=== PATIENT | male | born 1955 | race Caucasian/White ===

== ENCOUNTER 2016-08-21 22:20 | Emergency (ER) | payer OTHER, MEDICAID ==
[~2016-08-21] VITALS: Ht 172.7 cm; Wt 91.0 kg
[2016-08-22] MEDS ORDERED: HYDROCODONE/ACETAMINOPHEN 10/325MG TABLET PO ONE (01:45)
[2016-08-22 04:20] VITALS: BP 124/69
== END 2016-08-22 05:40 | disposition home or self-care (01) ==
LOC: ER 22:20
DX: S09.90XA Unspecified injury of head, initial encounter (principal); S16.1XXA Strain of muscle, fascia and tendon at neck level, initial encounter; S06.0X9A Concussion with loss of consciousness of unspecified duration, initial encounter; X58.XXXA Exposure to other specified factors, initial encounter; Y93.89 Activity, other specified; Y92.89 Other specified places as the place of occurrence of the external cause; Y99.8 Other external cause status
CPT/HCPCS: 70450; 72125; 99284

== ENCOUNTER 2018-08-09 21:34 | Emergency (ER) | payer MEDICARE, MEDICAID ==
[~2018-08-09] VITALS: Ht 170.2 cm; Wt 89.0 kg
[~2018-08-09 21:34] MED LIST: IBUP-2077 PO
[2018-08-09] MEDS ORDERED: ALBUTEROL (0.083%) 2.5MG/3ML NEB HHN STA (22:57)
[2018-08-09 23:50] LABS: BASOPHILS % 0.7 % (0.0-2.0); EOSINOPHILS % 2.7 % (0.0-5.0); HEMATOCRIT. 37.1 % (42.0-52.0); HEMOGLOBIN. 13.2 g/dL (14.0-18.0); LYMPHOCYTES % 22.6 % (20.0-50.0); MEAN CORPUSCULAR HEMOGLOBIN 31.5 pg (28.0-32.0); MEAN CORPUSCULAR VOLUME 88.5 fL (80.0-94.0); MEAN PLATELET VOLUME 8.9 fl (7.4-10.4); MONOCYTES % 8.1 % (2.0-8.0); NEUTROPHILS % 65.9 % (40.0-76.0); PLATELET 162 x1000/uL (130-400)
[2018-08-09 23:56] LABS: CHLORIDE 111 mEq/L (98-107)
[2018-08-10 02:17] VITALS: BP 109/66
== END 2018-08-10 02:42 | disposition home or self-care (01) ==
LOC: ER 23:27
DX: J40 Bronchitis, not specified as acute or chronic (principal)
CPT/HCPCS: 36415; 71045; 80053; 83605; 85025; 87040; 93005; 94640; 99284; J7611

== ENCOUNTER 2018-12-13 21:09 | Emergency (ER) | payer MEDICARE, MEDICAID ==
[~2018-12-13] VITALS: Ht 172.7 cm; Wt 94.0 kg
[2018-12-13] MEDS ORDERED: DIAZEPAM 5 MG TABLET PO ONE (22:45)
[2018-12-13] MEDS ORDERED: KETOROLAC 60MG/2ML VIAL IM ONE (23:00)
[2018-12-13 23:52] VITALS: BP 143/75
== END 2018-12-14 00:38 | disposition home or self-care (01) ==
LOC: ER 21:09
DX: M62.838 Other muscle spasm (principal); R51 Headache
CPT/HCPCS: 96372; 99283; J1885

== ENCOUNTER 2021-05-14 18:40 | Emergency (ER) | payer OTHER, MEDICAID ==
[~2021-05-14] VITALS: Ht 170.2 cm; Wt 85.0 kg
[2021-05-14] MEDS ORDERED: ACETAMINOPHEN 325MG TABLET PO STA (19:57)
[2021-05-14] MEDS ORDERED: CYCLOBENZAPRINE 10MG TABLET PO ONE (20:00)
[2021-05-14] MEDS ORDERED: IBUP-2029 MT (23:45)
[2021-05-14 23:57] VITALS: BP 145/83
== END 2021-05-14 23:59 | disposition home or self-care (01) ==
LOC: ER 18:40
DX: S82.002A Unspecified fracture of left patella, initial encounter for closed fracture (principal); E11.9 Type 2 diabetes mellitus without complications; V43.52XA Car driver injured in collision with other type car in traffic accident, initial encounter; Y93.89 Activity, other specified; Y92.488 Other paved roadways as the place of occurrence of the external cause
CPT/HCPCS: 29505; 71045; 71100; 73030; 73562; 93005; 99285

== ENCOUNTER 2021-12-07 18:10 | Emergency (ER) | payer OTHER, MEDICAID ==
[~2021-12-07] VITALS: Ht 172.7 cm; Wt 92.3 kg
[~2021-12-07 18:10] MED LIST changes: +IBUP-2029 MT
[2021-12-07 21:06] LABS: EOSINOPHILS % 1.3 % (0.0-5.0); HEMATOCRIT. 42.9 % (42.0-52.0); LYMPHOCYTES % 37.2 % (20.0-50.0); MEAN CORPUSCULAR HEMOGLOBIN 30.6 pg (28.0-32.0); MEAN CORPUSCULAR VOLUME 87.3 fL (80.0-94.0); MEAN PLATELET VOLUME 10.2 fl (7.4-10.4); MONOCYTES % 7.8 % (2.0-8.0); NEUTROPHILS % 52.7 % (40.0-76.0); PLATELET 197 x1000/uL (130-400); RED BLOOD CELL COUNT 4.91 mill/uL (4.7-6.1); RED CELL DISTRIBUTION WIDTH 13.3 % (11.6-14.6)
[2021-12-07 21:20] LABS: CHLORIDE 104 mEq/L (98-107)
[2021-12-08 00:58] VITALS: BP 146/81
== END 2021-12-08 02:11 | disposition home or self-care (01) ==
LOC: ER 18:27
DX: R07.89 Other chest pain (principal); M79.602 Pain in left arm; R20.2 Paresthesia of skin; R94.31 Abnormal electrocardiogram [ECG] [EKG]; I10 Essential (primary) hypertension; E11.9 Type 2 diabetes mellitus without complications
CPT/HCPCS: 36415; 71045; 80053; 84484; 85025; 93005; 99285

== ENCOUNTER 2024-10-17 06:38 | Emergency (ER) | payer OTHER, MEDICAID ==
[~2024-10-17] VITALS: Ht 175.3 cm; Wt 80.0 kg
[~2024-10-17 06:38] MED LIST changes: +IBUP-1455 MT; -IBUP-2029 MT
[2024-10-17 06:43] VITALS: O2SAT 100
[2024-10-17] MEDS: IBUPROFEN 600MG TABLET PO ONE (07:32)
[2024-10-17] MEDS ORDERED: CYCL10TA21 MT (08:06)
[2024-10-17] MEDS ORDERED: IBUP-1455 MT (08:06)
[2024-10-17 08:16] VITALS: BP 112/52; PULSE 58; RESP 16; TEMP 36.7; O2SAT 100
== END 2024-10-17 08:18 | disposition home or self-care (01) ==
LOC: ER 06:38
DX: S00.212A Abrasion of left eyelid and periocular area, initial encounter (principal); E11.9 Type 2 diabetes mellitus without complications; I10 Essential (primary) hypertension; Z79.899 Other long term (current) drug therapy; X58.XXXA Exposure to other specified factors, initial encounter; Y93.89 Activity, other specified; Y92.410 Unspecified street and highway as the place of occurrence of the external cause; Y99.8 Other external cause status
CPT/HCPCS: 72131; 99284